=== PATIENT | female | born 1975 | race Caucasian/White ===

== ENCOUNTER → 2022-01-17 | Outpatient (CLI) | payer BC ==
--- NOTE | 2022-01-17 11:27 | Diagnostic Imaging Report ---
INDICATION: Left knee quadriceps weakness. EXAMINATION: Limited left lower extremity sonogram 01/17/2022. FINDINGS: Per the technologist evaluation of the superior aspect of the knee is performed. No radiologist is present at the time of scanning. The distal quadriceps tendon is grossly intact on the images provided. There is no significant underlying fluid. IMPRESSION: 1. Limited evaluation with the quadriceps tendon grossly intact distally. However, complete integrity of the entire quadriceps tendon cannot be confirmed on the examination provided. If there is continued concern or persistent symptoms, MRI recommended for better characterization. Dictated by: Dictated on workstation # [id number]
== END ==
LOC: RAD FS 07:57
PROVIDERS: ATTEND Orthopaedic Surgery
DX: M25.562 Pain in left knee (principal); M62.81 Muscle weakness (generalized)
CPT/HCPCS: 76881